=== PATIENT | female | born 1965 | race Caucasian/White ===

== ENCOUNTER 2016-06-07 22:10 | Observation (INO) | payer OTHER ==
[~2016-06-07] VITALS: Ht 157.5 cm; Wt 65.9 kg
[~2016-06-07 22:10] MED LIST: ACET325T21 PO; ACID1TAB7 PO; ALPR0.254 PO; CLIN300C93 PO
[2016-06-07 23:17] LABS: BLOOD UREA NITROGEN 10 mg/dL (7-18)
[2016-06-07 23:23] LABS: ACETAMINOPHEN < 2 mcg/mL (10-30)
[2016-06-08 02:20] LABS: DAU SCREEN DISCLAIMER
[2016-06-08] MEDS ORDERED: DOCUSATE 100 MG CAPSULE PO PRN (02:30)
[2016-06-08] MEDS ORDERED: POTASSIUM CHLORIDE 20 MEQ TAB.ER.PRT PO ONE (02:30)
[2016-06-08] MEDS ORDERED: BISACODYL 10 MG SUPP PR PRN (02:30)
[2016-06-08] MEDS ORDERED: ACETAMINOPHEN 325 MG TABLET PO PRN (02:30)
[2016-06-08] MEDS ORDERED: POLYETHYLENE GLYCOL 17 GM PACKET PO PRN (02:30)
[2016-06-08 02:44] LABS: HCG UR OBC PASS
[2016-06-08] MEDS ORDERED: LORazepam 1MG TABLET PO PRN (07:30)
[2016-06-08 07:37] VITALS: BP 98/63
== END 2016-06-08 14:07 ==
LOC: ED 23:44 → EDIP 06-08 02:20 → 3E 06-08 02:41
PROVIDERS: ADMIT Internal Medicine; ATTEND Internal Medicine
DX: T14.91 Suicide attempt (principal); R45.851 Suicidal ideations; F15.10 Other stimulant abuse, uncomplicated; E87.6 Hypokalemia; F32.9 Major depressive disorder, single episode, unspecified; Z59.0 Homelessness
CPT/HCPCS: 36415; 80048; 80307; 80329; 81025; 82040; 84132; 85025; 99285; G0378; G0480